=== PATIENT | female | born 1990 | race Caucasian/White ===

== ENCOUNTER 2016-11-01 16:47 | Emergency (ER) | payer MEDICAID ==
[2016-11-01 16:58] VITALS: BP 115/79
[2016-11-01] MEDS ORDERED: IBUPROFEN 800 MG TABLET PO STA (16:59)
[2016-11-01] MEDS ORDERED: IBUPROFEN 800 MG TABLET PO ONE (16:59)
--- NOTE | 2016-11-01 17:00 | ED Physician Documentation ---
PD HPI SKIN - Stated complaint Stated Complaint: CHEST RASH - Chief complaint Chief Complaint: Wound - History obtained from History obtained from: Patient - History of Present Illness Timing - onset: Other (3 days of itchy and painful rash to the left upper breast and axillary area without fevers or chills. 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 : None HEENT: None Psych: None Musculoskeletal: None Derm: None - Past Surgical History Past Surgical History: Yes - Present Medications Home Medications: Ambulatory Orders Medication Instructions Recorded Confirmed Acyclovir 800 mg PO 5XD 10 Days 11/01/16 Gabapentin 300 mg PO TID #30 capsule 11/01/16 HYDROcod/ACETAM 5/325 [[place] 5/325] 1 - 2 ea PO Q6H PRN #15 tablet 11/01/16 predniSONE [Deltasone] 20 mg PO [id number] #21 tab 11/01/16 - Allergies Allergies/Adverse Reactions: Allergies Allergy/AdvReac Type Severity Reaction Status Date / Time No Known Drug Allergies Allergy Verified 07/09/15 21:49 - Social History Does the pt smoke?: Yes Smoking Status: Current some day smoker Does the pt drink ETOH?: No Does the pt have substance abuse?: No - Immunizations Immunizations are current?: Yes - POLST Patient has POLST: No PD ED PE NORMAL - Vitals Vital signs reviewed: Yes - General General: Alert and oriented X 3, No acute distress - Neck Neck: Supple, no meningeal sign, No bony TTP - Derm Derm: Other (Done with Lyric Walters RN, zoster to left upper breast and a little bit to left upper back) - Neuro Neuro: Alert and oriented X 3, Normal speech - Psych Psych: Normal mood, Normal affect Results - Vitals Vitals: Vital Signs - 24 hr 11/01/16 16:51 Temperature 37.0 C Heart Rate 113 H Respiratory 18 Rate Blood Pressure 115/79 O2 Saturation 97 Oxygen O2 Source Room air Departure - Departure Disposition: 01 Home, Self Care Clinical Impression: Herpes zoster Qualifiers: Herpes zoster complications: without complications Qualified Code(s): B02.9 - Zoster without complications Condition: Good Record reviewed to determine appropriate education?: Yes Instructions: ED Shingles Prescriptions: Acyclovir 800 mg PO 5XD 10 Days predniSONE [Deltasone] 20 mg PO [id number] #21 tab Gabapentin 300 mg PO TID #30 capsule HYDROcod/ACETAM 5/325 [[place] 5/325] 1 - 2 ea PO Q6H PRN #15 tablet PRN Reason: Pain Comments: Call your doctor to arrange a follow up appointment. Make the next available appointment. In the interim return anytime if worse or if new symptoms develop. Do not drink or drive while on narcotic pain medicine. Note that many narcotic pain relievers also contain tylenol/acetaminophen. Please ensure that your total dose of acetaminophen from all sources does not exceed 3 grams (3000mg) per day. You may constipated on this medication, take a stool softener such as "Colace" twice a day while you are on it. Also recommend a [id number] laxative such as senna or MiraLAX any day that you do not have a bowel movement. If you received narcotic pain medication in the emergency department, do not drive or operate machinery for the next 24 hours.
== END 2016-11-01 17:15 | disposition home or self-care (01) ==
LOC: ED 16:47
DX: B02.9 Zoster without complications (principal); F17.200 Nicotine dependence, unspecified, uncomplicated
CPT/HCPCS: 99283; A9270

== ENCOUNTER 2017-03-18 14:16 | Emergency (ER) | payer MEDICAID ==
[2017-03-18 14:45] LABS: BILIRUBIN,URINE NEGATIVE (NEGATIVE)
[2017-03-18 14:50] LABS: HCG UR QUAL NEGATIVE; UA CHARGE (STRIP ONLY) YES; UR CULTURE IF IND NOT INDICATED
[2017-03-18] MEDS ORDERED: DICYCLOMINE 10 MG CAPSULE PO STA (14:51)
[2017-03-18] MEDS ORDERED: KETOROLAC 60 MG/2 ML VIAL IVP STA (14:51)
[2017-03-18] MEDS ORDERED: ONDANSETRON 4 MG/2 ML VIAL IVP STA (14:51)
[2017-03-18] MEDS ORDERED: SODIUM CHLORIDE 0.9% 1,000 ML IV ONE (14:51)
[2017-03-18] MEDS ORDERED: KETOROLAC 60 MG/2 ML VIAL ONE (15:02)
[2017-03-18] MEDS ORDERED: ONDANSETRON 4 MG/2 ML VIAL ONE (15:03)
[2017-03-18] MEDS ORDERED: DICYCLOMINE 10 MG CAPSULE PO ONE (15:03)
[2017-03-18 15:40] LABS: BASOPHILS % (AUTO) 0.1 %; EOSINOPHILS % (AUTO) 0.1 %; HCT - HEMATOCRIT 37.3 % (37.0-47.0); HGB - HEMOGLOBIN 12.7 g/dL (12.0-16.0); LYMPHOCYTES # (AUTO) 0.9 10^3/uL (1.5-3.5); LYMPHOCYTES % (AUTO) 7.4 %; MEAN CORPUSCULAR HEMOGLOBIN 31.1 pg (27.0-31.0); MEAN CORPUSCULAR HGB CONC 34.1 g/dL (32.0-36.0); MEAN CORPUSCULAR VOLUME 91.1 fL (81.0-99.0); MONOCYTES # (AUTO) 0.5 10^3/uL (0.0-1.0); MONOCYTES % (AUTO) 4.2 %; NEUTROPHILS # (AUTO) 10.5 10^3/uL (1.5-6.6); NEUTROPHILS % (AUTO) 88.2 %; RED BLOOD COUNT 4.09 10^6/uL (4.20-5.40); RED CELL DISTRIBUTION WIDTH 12.9 % (12.0-15.0); UNCORRECTED WHITE BLOOD COUNT 11.9 x10^3/uL; WHITE BLOOD COUNT 11.9 x10^3/uL (4.8-10.8)
[2017-03-18 15:53] LABS: ALBUMIN/GLOBULIN RATIO 1.5 (1.0-2.2); CALCIUM 8.9 mg/dL (8.5-10.3); CREATININE 0.7 mg/dL (0.4-1.0); POTASSIUM 3.5 mmol/L (3.5-5.0); TOTAL PROTEIN 6.6 g/dL (6.7-8.2)
--- NOTE | 2017-03-18 16:00 | ED Physician Documentation ---
History of Present Illness - Stated complaint Stated Complaint: ABD CRAMPING/NAUSEA - Chief complaint Chief Complaint: Abd Pain - Additonal information Additional information: hx from pt 27 female had a frozen pizza, it thawed for a few days, she put it back in the freezer, then eventually ate it last night within an hr she had severe abd cramps and NV no diarrhea denies preg otherwise healthy no prior surgery Review of Systems Constitutional: denies: Fever, Chills Cardiac: denies: Chest pain / pressure Respiratory: denies: Dyspnea GI: reports: Abdominal Pain, Nausea, Vomiting. 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 : None HEENT: None Psych: None Musculoskeletal: None Derm: Other Other Past Medical History: shingles - Past Surgical History Past Surgical History: Yes - Present Medications Home Medications: Ambulatory Orders Medication Instructions Recorded Confirmed Dicyclomine [Bentyl] 10 mg PO Q8H PRN #20 capsule 03/18/17 Ondansetron HCl [Zofran] 4 mg PO QID PRN 03/18/17 03/18/17 Ondansetron Odt [Zofran] 4 mg TL Q6H PRN #10 tablet 03/18/17 - Allergies Allergies/Adverse Reactions: Allergies Allergy/AdvReac Type Severity Reaction Status Date / Time No Known Drug Allergies Allergy Verified 03/18/17 14:29 - Social History Does the pt smoke?: Yes Smoking Status: Current every day smoker Does the pt drink ETOH?: No Does the pt have substance abuse?: Yes Substance Use and Type: Marijuana - Immunizations Immunizations are current?: Yes - POLST Patient has POLST: No PD ED PE NORMAL - Vitals Vital signs reviewed: Yes - General General: Alert and oriented X 3 - HEENT HEENT: PERRL - Neck Neck: Supple, no meningeal sign - Cardiac Cardiac: RRR - Respiratory Respiratory: No respiratory distress, Clear bilaterally - Abdomen Abdomen: Soft, Other (+ BS diffusely TTP, R > L but no focal, some vol guarding , no rebound) - Derm Derm: Normal color Results - Vitals Vitals: Vital Signs - 24 hr 03/18/17 14:26 Temperature 37.4 C Heart Rate 96 Respiratory 16 Rate Blood Pressure 100/56 L O2 Saturation 96 Oxygen O2 Source Room air - Labs Labs: Laboratory Tests 03/18/17 03/18/17 03/18/17 14:40 15:07 15:07 WBC 11.9 H RBC 4.09 L Hgb 12.7 Hct 37.3 MCV 91.1 MCH 31.1 H MCHC 34.1 RDW 12.9 Plt Count 289 MPV 8.0 Neut # 10.5 H Lymph # 0.9 L [place] # 0.5 Eos # 0.0 Baso # 0.0 Absolute Nucleated RBC 0.01 Nucleated RBC % 0.0 Sodium 138 Potassium 3.5 Chloride 105 Carbon Dioxide 25 Anion Gap 8.0 BUN 15 Creatinine 0.7 Estimated GFR (MDRD) 99 Glucose 98 Calcium 8.9 Total Bilirubin 1.0 AST 18 ALT 20 Alkaline Phosphatase 54 Total Protein 6.6 L Albumin 4.0 Globulin 2.6 Albumin/Globulin Ratio 1.5 Lipase 11 L Serum HCG, Qual Urine Color YELLOW Urine Clarity CLEAR Urine pH 7.0 Ur Specific [place] 1.015 Urine Protein NEGATIVE Urine Glucose (UA) NEGATIVE Urine Ketones NEGATIVE Urine Occult Blood NEGATIVE Urine Nitrite NEGATIVE Urine Bilirubin NEGATIVE Urine Urobilinogen 0.2 (NORMAL) Ur Leukocyte Esterase NEGATIVE Ur Microscopic Review NOT INDICATED Urine Culture Comments NOT INDICATED Urine HCG, Qual NEGATIVE 03/18/17 15:07 WBC RBC Hgb Hct MCV MCH MCHC RDW Plt Count MPV Neut # Lymph # [place] # Eos # Baso # Absolute Nucleated RBC Nucleated RBC % Sodium Potassium Chloride Carbon Dioxide Anion Gap BUN Creatinine Estimated GFR (MDRD) Glucose Calcium Total Bilirubin AST ALT Alkaline Phosphatase Total Protein Albumin Globulin Albumin/Globulin Ratio Lipase Serum HCG, Qual NEGATIVE Urine Color Urine Clarity Urine pH Ur Specific [place] Urine Protein Urine Glucose (UA) Urine Ketones Urine Occult Blood Urine Nitrite Urine Bilirubin Urine Urobilinogen Ur Leukocyte Esterase Ur Microscopic Review Urine Culture Comments Urine HCG, Qual - Rads (name of study) abd sono Radiology: See rad report (nl RUQ sono - no gallstones, appendix not seen, no secondary signs of appendicitis, appendicitis felt to be unlikely) PD MEDICAL DECISION MAKING - ED course ED course: hx most suggestive of food poisoning but pt most TTP on R side so checked labs and sono - no evidence of acute shimon or appy, pt feeling better after IVF bentyl toradol and zofran BP 90s-100 - pt is very thin and fit - not tachy, no change with IVF - suspect this is her baseline Departure - Departure Disposition: 01 Home, Self Care Clinical Impression: Dehydration Food poisoning Qualifiers: Encounter type: initial encounter Injury intent: accidental or unintentional Qualified Code(s): T62.91XA - Toxic effect of unspecified noxious substance eaten as food, accidental (unintentional), initial encounter Condition: Good Instructions: ED Dehydration, ED Gastroenteritis Vs Food Poison Follow-Up: Elver Santos MD [Primary Care Provider] - Prescriptions: Dicyclomine [Bentyl] 10 mg PO Q8H PRN #20 capsule PRN Reason: stomach cramps Ondansetron Odt [Zofran] 4 mg TL Q6H PRN #10 tablet PRN Reason: Nausea / Vomiting Comments: Your labs were fine. The ultrasound did not show any gallstones or signs of appendicitis. So this is likely food poisoning as your suspected. Usually when symptoms start within hours of eating the bad food, it is toxin mediated food poisoning (as opposed to live bacteria like salmonella) and so antibiotics are not needed I did prescribe medication called zofran to ease the vomiting so you can stay hydrated and bentyl to ease the cramps Rest and drink plenty of fluids I wrote a note for work tomorrow Forms: Activity restrictions
--- NOTE | 2017-03-18 17:04 | Ultrasound Preliminary Report ---
Exam: US ABDOMEN LIMITED IMPRESSION: 1. Unremarkable right upper quadrant ultrasound. No cholelithiasis or evidence of acute cholecystitis . 2. The appendix is not visualized. No right lower quadrant secondary signs of inflammation. Therefore , this is considered below low likelihood for acute appendicitis. However, if further evaluation were clinically indicated, CT imaging with contrast would be recommended. [facility] SITE ID: [id number]
--- NOTE | 2017-03-18 17:06 | Ultrasound Report ---
EXAM: ABDOMEN ULTRASOUND LIMITED, RUQ EXAM DATE: 03/18/2017 04:30 PM. CLINICAL HISTORY: Right abd pain, eval appendic and GB. COMPARISON: None. TECHNIQUE: Real-time scanning was performed with static images obtained. FINDINGS: Liver: Normal in size and echotexture. 16.1 cm. Main portal vein flow: Hepatopetal. Gallbladder: Normal. No stones, wall thickening, or sonographic Powell's sign. Biliary System: CBD measures 3.1 mm. No intrahepatic or extrahepatic ductal dilatation. Other: The visualized right kidney, pancreas, abdominal aorta and IVC are unremarkable. Right lower quadrant/appendix: The appendix is not visualized. The patient reportedly tolerated compr ession well. No abnormal lymph nodes, free fluid or abnormal fluid collections demonstrated. Right ov tricia appears grossly normal. IMPRESSION: 1. Unremarkable right upper quadrant ultrasound. No cholelithiasis or evidence of acute cholecystitis . 2. The appendix is not visualized. No right lower quadrant secondary signs of inflammation. Therefore , this is considered below low likelihood for acute appendicitis. However, if further evaluation were clinically indicated, CT imaging with contrast would be recommended. PATR[facility] Referring Provider Line: [phone] SITE ID: [id number]
[2017-03-18 17:15] VITALS: BP 92/42
== END 2017-03-18 17:43 | disposition home or self-care (01) ==
LOC: ED 14:16
DX: E86.0 Dehydration (principal); T62.8X1A Toxic effect of other specified noxious substances eaten as food, accidental (unintentional), initial encounter; Y92.019 Unspecified place in single-family (private) house as the place of occurrence of the external cause; J45.909 Unspecified asthma, uncomplicated; F17.200 Nicotine dependence, unspecified, uncomplicated
CPT/HCPCS: 36415; 76705; 80053; 81003; 81025; 83690; 84703; 85025; 96361; 96374; 96375; 99283; 99284; A9270; 81001; 87086

== ENCOUNTER 2017-06-03 16:45 | Emergency (ER) | payer MEDICAID ==
[2017-06-03 16:53] VITALS: BP 115/46
[2017-06-03] MEDS ORDERED: CLINDAMYCIN 150 MG CAPSULE PO STA (17:15)
[2017-06-03] MEDS ORDERED: NAPROXEN 250 MG TABLET PO STA (17:15)
--- NOTE | 2017-06-03 17:15 | ED Physician Documentation ---
PD HPI HEENT - Stated complaint Stated Complaint: TOOTH PX - Chief complaint Chief Complaint: Heent - History obtained from History obtained from: Patient - History of Present Illness Timing - onset: How many days ago (few) Timing - duration: Days (few) Timing - details: Gradual onset, Still present Location: Tooth (Right lower first molar has a prior On it from years ago. She states it started feeling loose with chewing several days ago and subsequently has gotten more painful with a feeling of pressure in the area and some pain extending into the jaw. There is slight swelling around the base. She states she does have dental coverage but not a regular dentist and so was not able to contact any this weekend. She will try contacting a dentist on Sunday.) Associated symptoms: No: Fever, Swollen nodes, Facial swelling Similar symptoms before: Has not had sx before Recently seen: Not recently seen Review of Systems Constitutional: denies: Fever, Chills, Myalgias Nose: denies: Rhinorrhea / runny nose, Congestion Throat: reports: Dental pain / toothache. 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 : None HEENT: None Psych: None Musculoskeletal: None Derm: Other - Past Surgical History Past Surgical History: Yes - Present Medications Home Medications: Ambulatory Orders Medication Instructions Recorded Confirmed Clindamycin HCl [Cleocin HCl] 300 mg PO TID #20 capsule 06/03/17 HYDROcod/ACETAM 5/325 [[place] 5/325] 1 tab PO Q6H PRN #15 tablet 06/03/17 Naproxen 375 mg PO BID #20 tablet 06/03/17 - Allergies Allergies/Adverse Reactions: Allergies Allergy/AdvReac Type Severity Reaction Status Date / Time No Known Drug Allergies Allergy Verified 06/03/17 16:53 - Social History Does the pt smoke?: Yes Smoking Status: Current every day smoker Does the pt drink ETOH?: No Does the pt have substance abuse?: Yes - Immunizations Immunizations are current?: Yes - POLST Patient has POLST: No PD ED PE NORMAL - Vitals Vital signs reviewed: Yes - General General: Alert and oriented X 3, Well developed/nourished - HEENT HEENT: Ears normal, Pharynx benign. No: Dentition benign (Most of her teeth are pretty good. Old cap on right first lower molar is still in place. There is some mild gum swelling around the base of it. No fluctuance. Tender to percussion though. Presume infection underneath. ) - Neck Neck: Supple, no meningeal sign, No adenopathy - Cardiac Cardiac: RRR, No murmur - Derm Derm: Normal color, Warm and dry - Neuro Neuro: Alert and oriented X 3, Normal speech Results - Vitals Vitals: Vital Signs - 24 hr 06/03/17 16:50 Temperature 36.5 C Heart Rate 77 Respiratory 18 Rate Blood Pressure 115/46 L O2 Saturation 98 Oxygen O2 Source Room air PD MEDICAL DECISION MAKING - ED course Complexity details: considered differential (presume early infection and also inflammation. She will contact dentist this coming week. ), d/w patient Departure - Departure Disposition: 01 Home, Self Care Clinical Impression: Dental infection Condition: Stable Record reviewed to determine appropriate education?: Yes Instructions: ED Tooth Pain Prescriptions: Clindamycin HCl [Cleocin HCl] 300 mg PO TID #20 capsule HYDROcod/ACETAM 5/325 [[place] 5/325] 1 tab PO Q6H PRN #15 tablet PRN Reason: Pain Naproxen 375 mg PO BID #20 tablet Comments: Presume there is inflammation and probably early infection underneath the On that tooth. Use naproxen twice daily for inflammation and clindamycin antibiotic as directed for infection. Add Tylenol or hydrocodone if needed for pain. The definitive care of this will be from a dentist so call Sunday to try to get an appointment as soon as they are able to get you. Discharge Date/Time: 06/03/17 17:26
[2017-06-03] MEDS ORDERED: HYDROcod/ACET 5/325 Prepack 6 PO STA (17:16)
== END 2017-06-03 17:26 | disposition home or self-care (01) ==
LOC: ED 16:45
DX: K04.7 Periapical abscess without sinus (principal); F17.200 Nicotine dependence, unspecified, uncomplicated
CPT/HCPCS: 99283; A9270

== ENCOUNTER 2018-03-13 16:58 | Emergency (ER) | payer MEDICAID ==
[2018-03-13 17:13] VITALS: BP 123/72
--- NOTE | 2018-03-13 19:41 | ED Physician Documentation ---
PD HPI FEMALE - Stated complaint Stated Complaint: FEMALE - Chief complaint Chief Complaint: Abd Pain - History obtained from History obtained from: Patient - History of Present Illness Timing - onset: Yesterday (2-3 days ago perhaps, but more yesterday) Timing - duration: Days Timing - details: Gradual onset, Still present Associated symptoms: Vaginal pain (feeling burning and some itching; tried OTC yeast cream the past couple days, but pain worse since yesterday.), Vaginal bleeding (spoitty), Vaginal discharge, Genital sore/lesion (noted a small bump on inner labia area and periurethral.), Dysuria (today). No: Fever, Urinary frequency Contributing factors: IUD (she says has had spotty bleeding with the IUD and would like to have it out (has had it 3 years). Asks if we can do removal while doing pelvic for checking symptoms.), Sexually active. No: Exposed to STD Similar symptoms before: Has not had sx before Review of Systems Constitutional: denies: Fever, Chills, Myalgias Nose: denies: Rhinorrhea / runny nose Throat: denies: Sore throat Respiratory: denies: Cough GI: denies: Nausea, Vomiting, Diarrhea : reports: Dysuria, Discharge, Irregular menses (light spotting intermittently since IUD 3 years ago). denies: Frequency, Hematuria Skin: reports: Lesions (noted inner labia redness and has a small bump). 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 HEENT: None Psych: None Musculoskeletal: None Derm: Other - Past Surgical History Past Surgical History: Yes - Present Medications Home Medications: Ambulatory Orders Medication Instructions Recorded Confirmed Fluconazole [Diflucan] 150 mg PO ONCE #1 tablet 03/13/18 Metronidazole [Flagyl] 500 mg PO BID #14 tablet 03/13/18 Tramadol HCl 50 mg PO Q6H PRN #15 tablet 03/13/18 - Allergies Allergies/Adverse Reactions: Allergies Allergy/AdvReac Type Severity Reaction Status Date / Time No Known Drug Allergies Allergy Verified 03/13/18 17:08 - Social History Does the pt smoke?: Yes Smoking Status: Current every day smoker Does the pt drink ETOH?: No Does the pt have substance abuse?: Yes Substance Use and Type: Marijuana - Immunizations Immunizations are current?: No Immunizations: TDAP >10years/unknown - POLST Patient has POLST: No PD ED PE NORMAL - Vitals Vital signs reviewed: Yes - General General: Alert and oriented X 3, No acute distress, Well developed/nourished - Abdomen Abdomen: Soft, Non tender - Female Female : Rails 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 Inner labia with some small inflammatory bumps but do not feel like abscesses. No erosions. Viral culture obtained from that area. Redness of the tissue generally c/w possible yeast. The vaginal vault has milky white dicharge with some mild malodor. Mild redness of cervical os. IUD strings visible and I removed the IUD verify again the patient desire for that.) - Rectal Rectal: Deferred - Back Back: No CVA TTP - Derm Derm: Normal color, Warm and dry - Extremities Extremities: No calf tenderness / cord Results - Vitals Vitals: Vital Signs - 24 hr 03/13/18 03/13/18 17:07 21:06 Temperature 37.2 C Heart Rate 89 95 Respiratory 20 19 Rate Blood Pressure 123/72 O2 Saturation 100 100 Oxygen O2 Source Room air - Labs Labs: Microbiology 03/13/18 20:30 Wet Prep - Final Cervix Laboratory Tests 03/13/18 20:02 Urine Color YELLOW Urine Clarity CLEAR Urine pH 6.5 Ur Specific [place] 1.015 Urine Protein NEGATIVE Urine Glucose (UA) NEGATIVE Urine Ketones NEGATIVE Urine Occult Blood SMALL H Urine Nitrite NEGATIVE Urine Bilirubin NEGATIVE Urine Urobilinogen 0.2 (NORMAL) Ur Leukocyte Esterase NEGATIVE Urine RBC 6-10 H Urine WBC 0-3 Ur Squamous Epith Cells FEW Squamous Urine Bacteria None Seen Ur Microscopic Review INDICATED Urine Culture Comments NOT INDICATED PD MEDICAL DECISION MAKING - ED course Complexity details: reviewed results (clue cells seen. ), considered differential (likely BV and will test for STDs and herpes as well. ), d/w michael leavitt Departure - Departure Disposition: 01 Home, Self Care Clinical Impression: Bacterial vaginitis, Remove/insert IUD Condition: Stable Record reviewed to determine appropriate education?: Yes Instructions: ED Vaginosis Bacterial Follow-Up: Elver Santos MD [Primary Care Provider] - Prescriptions: Fluconazole [Diflucan] 150 mg PO ONCE #1 tablet Metronidazole [Flagyl] 500 mg PO BID #14 tablet Tramadol HCl 50 mg PO Q6H PRN #15 tablet PRN Reason: Pain Comments: Your exam looks like a bacterial vaginitis. There may be some vaginal yeast infection as well. We will treated with Flagyl antibiotic twice daily for a week. Avoid alcohol with it as it can cause a side effect of nausea. We gave you an antifungal tablet here and you can repeat that in about 3 or 4 days. That should treat any yeast component. The initial lab microscope view did show a bacterial presence that is a normal alissa in the vaginal vault that can get out of balance. We did do cultures to look for STDs as well as herpetic and those will result in 2-3 days and will call you if they are positive. It does not have that appearance right now but were double checking Tylenol or ibuprofen if needed for pain. Use lidocaine jelly if needed. Add tramadol if needed for worse pain. It should improve over the next few days. Discharge Date/Time: 03/13/18 21:06
[2018-03-13 20:09] LABS: BILIRUBIN,URINE NEGATIVE (NEGATIVE); GLUCOSE, URINE (UA) NEGATIVE (NEGATIVE); KETONES,URINE (UA) NEGATIVE (NEGATIVE); LEUKOCYTE ESTERASE, URINE NEGATIVE (NEGATIVE); NITRITE,URINE NEGATIVE (NEGATIVE); OCCULT BLOOD,URINE SMALL (NEGATIVE); PH,URINE 6.5 PH (5.0-7.5); PROTEIN,URINE NEGATIVE (NEGATIVE); UROBILINOGEN,URINE 0.2 (NORMAL) E.U./dL (NORMAL)
[2018-03-13 20:22] LABS: BACTERIA,URINE None Seen /HPF (None Seen); CLARITY,URINE CLEAR (CLEAR); SQUAMOUS EPITHELIAL CELL,UR FEW Squamous (<= Few)
[2018-03-13] MEDS ORDERED: IBUPROFEN 600 MG TABLET PO STA (20:28)
[2018-03-13] MEDS ORDERED: FLUCONAZOLE 100 MG TABLET PO STA (20:28)
[2018-03-13] MEDS ORDERED: metroNIDAZOLE 250 MG TABLET PO STA (20:28)
[2018-03-13] MEDS ORDERED: LIDOCAINE JELLY 2% 5 ML TUBE TOP STA (20:28)
[2018-03-16 10:21] LABS: HSV 2 DNA NOT DETECTED; SOURCE VAGINAL
== END 2018-03-13 21:06 | disposition home or self-care (01) ==
LOC: ED 16:58
DX: N76.0 Acute vaginitis (principal); F17.200 Nicotine dependence, unspecified, uncomplicated; Z30.432 Encounter for removal of intrauterine contraceptive device
CPT/HCPCS: 81001; 87210; 87491; 87529; 87591; 99283; A9270; J3490; 81003; 87086

== ENCOUNTER 2018-03-18 14:11 | Emergency (ER) | payer MEDICAID ==
[2018-03-18 14:38] VITALS: BP 104/57
--- NOTE | 2018-03-18 15:44 | ED Physician Documentation ---
PD HPI FEMALE - Stated complaint Stated Complaint: ABN LAB RESULT - Chief complaint Chief Complaint: General - History obtained from History obtained from: Patient - History of Present Illness Timing - onset: How many days ago (days ago of vaginal burning and dysuria, and was treated for BV with Flagyl. Howveer still small blistes on inside left labia, worsening numbr of these) Timing - duration: Days Timing - details: Gradual onset, Waxing and waning Associated symptoms: Fever, Chest/shoulder pain, Abdominal pain, Urinary frequency Review of Systems Constitutional: denies: Fever, Chills : reports: Frequency. 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 : None HEENT: None Psych: None Musculoskeletal: None Derm: Other - Past Surgical History Past Surgical History: Yes - Present Medications Home Medications: Ambulatory Orders Medication Instructions Recorded Confirmed Fluconazole [Diflucan] 150 mg PO ONCE #1 tablet 03/13/18 Metronidazole [Flagyl] 500 mg PO BID #14 tablet 03/13/18 Tramadol HCl 50 mg PO Q6H PRN #15 tablet 03/13/18 Acyclovir 400 mg PO TID #15 tablet 03/18/18 - Allergies Allergies/Adverse Reactions: Allergies Allergy/AdvReac Type Severity Reaction Status Date / Time No Known Drug Allergies Allergy Verified 03/13/18 17:08 - Social History Does the pt smoke?: Yes Smoking Status: Current every day smoker Does the pt drink ETOH?: No Does the pt have substance abuse?: Yes - Immunizations Immunizations are current?: No Immunizations: TDAP >10years/unknown - POLST Patient has POLST: No PD ED PE NORMAL - Vitals Vital signs reviewed: Yes - General General: Alert and oriented X 3, No acute distress (is tearful about the results), Well developed/nourished - HEENT HEENT: Pharynx benign - Neck Neck: Supple, no meningeal sign, No adenopathy - Cardiac Cardiac: RRR, No murmur - Respiratory Respiratory: Clear bilaterally - Back Back: No CVA TTP - Derm Derm: Normal color, Warm and dry, No rash Results - Vitals Vitals: Oxygen O2 Source Room air PD MEDICAL DECISION MAKING - ED course Complexity details: reviewed old records, reviewed results (had the BV from the wet mount on first bisit, and was treated. Had blisters worrisome for herpetic and was cultures, the results of which are out today with positive HSV !), considered differential, d/w patient (had covered BV germs with Flagyl and she says the discharge is lessening. She is getting more of the little blister and labial pain though. 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 Presumably the bacterial vaginosis has been treated (that is the trichomonas and clue cells on the lab results) with the metronidazole that was prescribed on your first visit. 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 You typically will not get rid of the herpes presence in the nerve endings but it is quite variable if you get recurrent outbreaks and it can be quite a long time in between them. Use acyclovir dosing for 5 days for recurrent outbreaks. Discharge Date/Time: 03/18/18 16:08
== END 2018-03-18 16:08 | disposition home or self-care (01) ==
LOC: ED 14:11
DX: A60.09 Herpesviral infection of other urogenital tract (principal); F17.200 Nicotine dependence, unspecified, uncomplicated
CPT/HCPCS: 99283

== ENCOUNTER 2018-05-12 05:45 | Emergency (ER) | payer MEDICAID ==
[2018-05-12 06:07] LABS: BILIRUBIN,URINE NEGATIVE (NEGATIVE); GLUCOSE, URINE (UA) NEGATIVE (NEGATIVE); KETONES,URINE (UA) NEGATIVE (NEGATIVE); LEUKOCYTE ESTERASE, URINE NEGATIVE (NEGATIVE); NITRITE,URINE NEGATIVE (NEGATIVE); OCCULT BLOOD,URINE TRACE-INTA (NEGATIVE); PROTEIN,URINE NEGATIVE (NEGATIVE); UROBILINOGEN,URINE 0.2 (NORMAL) E.U./dL (NORMAL)
[2018-05-12 06:08] LABS: CLARITY,URINE CLEAR (CLEAR); HCG UR QUAL POSITIVE
[2018-05-12] MEDS ORDERED: ONDANSETRON ODT 4 MG TABLET TL STA (06:25)
--- NOTE | 2018-05-12 06:25 | ED Physician Documentation ---
PD HPI NVD - Stated complaint Stated Complaint: NAUSEA,VOMITING - Chief complaint Chief Complaint: Abd Pain - History obtained from History obtained from: Patient - History of Present Illness Timing - onset: How many days ago (4) Timing - duration: Days Timing - details: Gradual onset, Intermittant, Waxing and waning Pain level now: 0 Associated symptoms: No: Fever, Abdominal pain Improved by: Other (nothing) Worsened by: Other (no exacerbating factors) Recently seen: Emergency Dept (T+R 2 months ago from this ED, subsequently had IUD removed) - Additonal information Additional information: c/o 4 days N/V. had (+) home test yesterday. Review of Systems Constitutional: denies: Fever GI: reports: Nausea, Vomiting. denies: Abdominal Pain : reports: Now EGA. 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 : None HEENT: None Psych: None Musculoskeletal: None Derm: Other - Past Surgical History Past Surgical History: Yes - Present Medications Home Medications: Ambulatory Orders Medication Instructions Recorded Confirmed Fluconazole [Diflucan] 150 mg PO ONCE #1 tablet 03/13/18 Metronidazole [Flagyl] 500 mg PO BID #14 tablet 03/13/18 Tramadol HCl 50 mg PO Q6H PRN #15 tablet 03/13/18 Acyclovir 400 mg PO TID #15 tablet 03/18/18 Ondansetron [Ondansetron Odt] 4 mg PO Q6HR PRN #14 tab.rapdis 05/12/18 - Allergies Allergies/Adverse Reactions: Allergies Allergy/AdvReac Type Severity Reaction Status Date / Time No Known Drug Allergies Allergy Verified 05/12/18 05:55 - Social History Does the pt smoke?: Yes Smoking Status: Current every day smoker Does the pt drink ETOH?: No Does the pt have substance abuse?: Yes - Immunizations Immunizations are current?: No Immunizations: TDAP >10years/unknown - POLST Patient has POLST: No PD ED PE NORMAL - Vitals Vital signs reviewed: Yes - General General: Alert and oriented X 3, No acute distress, Well developed/nourished - Abdomen Abdomen: Soft, Non tender - Back Back: No CVA TTP Results - Vitals Vitals: Vital Signs - 24 hr 05/12/18 05/12/18 05:48 06:35 Temperature 36.3 C L Heart Rate 116 H 85 Respiratory 16 16 Rate Blood Pressure 124/73 126/72 O2 Saturation 99 100 Oxygen O2 Source Room air - Labs Labs: Laboratory Tests 05/12/18 06:00 Urine Color YELLOW Urine Clarity CLEAR Urine pH 6.0 Ur Specific [place] 1.025 Urine Protein NEGATIVE Urine Glucose (UA) NEGATIVE Urine Ketones NEGATIVE Urine Occult Blood TRACE-INTA Urine Nitrite NEGATIVE Urine Bilirubin NEGATIVE Urine Urobilinogen 0.2 (NORMAL) Ur Leukocyte Esterase NEGATIVE Ur Microscopic Review NOT INDICATED Urine Culture Comments NOT INDICATED Urine HCG, Qual POSITIVE PD MEDICAL DECISION MAKING - ED course Complexity details: considered differential, d/w patient Departure - Departure Disposition: 01 Home, Self Care Clinical Impression: Vomiting during Condition: Good Instructions: ED Nausea Vomiting Follow-Up: Elver Santos MD [Primary Care Provider] - Prescriptions: Ondansetron [Ondansetron Odt] 4 mg PO Q6HR PRN #14 tab.rapdis PRN Reason: Nausea / Vomiting Comments: Your test is positive: this means that you are . As we discussed, you will need further testing including blood tests and an ultrasound, but if your symptoms are limited to mild nausea and vomiting that are controlled with the antinausea medication, you can follow up with your trapper bird to discuss the timing of these tests. Please return to the emergency department if you are worse in any way; particularly concerning would be pain (vaginal, pelvic, abdominal, back), vaginal bleeding, fever, or worsening nausea/vomiting. Discharge Date/Time: 05/12/18 06:45
[2018-05-12 06:53] VITALS: BP 126/72
== END 2018-05-12 06:45 | disposition home or self-care (01) ==
LOC: ED 05:45
DX: O99.89 Other specified diseases and conditions complicating pregnancy, childbirth and the puerperium (principal); R11.2 Nausea with vomiting, unspecified; F17.200 Nicotine dependence, unspecified, uncomplicated
CPT/HCPCS: 81003; 81025; 99283; Q0162; 81001; 87086

== ENCOUNTER 2018-05-26 10:09 | Emergency (ER) | payer MEDICAID ==
[2018-05-26 10:28] LABS: BILIRUBIN,URINE NEGATIVE (NEGATIVE); GLUCOSE, URINE (UA) NEGATIVE (NEGATIVE); KETONES,URINE (UA) NEGATIVE (NEGATIVE); LEUKOCYTE ESTERASE, URINE NEGATIVE (NEGATIVE); NITRITE,URINE NEGATIVE (NEGATIVE); OCCULT BLOOD,URINE TRACE-INTA (NEGATIVE); PH,URINE 6.5 PH (5.0-7.5); PROTEIN,URINE NEGATIVE (NEGATIVE); UROBILINOGEN,URINE 0.2 (NORMAL) E.U./dL (NORMAL)
[2018-05-26] MEDS ORDERED: ONDANSETRON ODT 4 MG TABLET TL STA (10:29)
--- NOTE | 2018-05-26 10:31 | ED Physician Documentation ---
PD HPI NVD - Stated complaint Stated Complaint: NAUSEA - Chief complaint Chief Complaint: Abd Pain - History obtained from History obtained from: Patient - History of Present Illness Timing - onset: Today Timing - details: Still present Contributing factors: Other () Similar symptoms before: Diagnosis (Similar symptoms with previous pregnancies.) - Additonal information Additional information: The patient is a 28-year-old female who is at 9 weeks gestation, and presents with nausea and vomiting. She denies abdominal pain, fever, dysuria, or vaginal bleeding. She reports history of similar symptoms with her previous pregnancies. She does not currently have any medication for nausea. She recently had an ultrasound revealing intrauterine . Review of Systems Constitutional: denies: Fever Ears: denies: Tinnitus/ringing Nose: denies: Congestion Throat: denies: Sore throat Cardiac: denies: Chest pain / pressure Respiratory: denies: Dyspnea, Cough GI: reports: Nausea, Vomiting, Constipation. denies: Abdominal Pain : reports: Now EGA (9 weeks gestation.). 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 HEENT: None Psych: None Musculoskeletal: None Derm: Other - Past Surgical History Past Surgical History: Yes - Present Medications Home Medications: Ambulatory Orders Medication Instructions Recorded Confirmed Fluconazole [Diflucan] 150 mg PO ONCE #1 tablet 03/13/18 Metronidazole [Flagyl] 500 mg PO BID #14 tablet 03/13/18 Tramadol HCl 50 mg PO Q6H PRN #15 tablet 03/13/18 Acyclovir 400 mg PO TID #15 tablet 03/18/18 Ondansetron [Ondansetron Odt] 4 mg PO Q6HR PRN #14 tab.rapdis 05/12/18 Ondansetron Odt [Zofran] 4 mg TL Q6H PRN #10 tablet 05/26/18 - Allergies Allergies/Adverse Reactions: Allergies Allergy/AdvReac Type Severity Reaction Status Date / Time No Known Drug Allergies Allergy Verified 05/12/18 05:55 - Social History Does the pt smoke?: Yes Smoking Status: Current every day smoker Does the pt drink ETOH?: No Does the pt have substance abuse?: Yes - Immunizations Immunizations are current?: No Immunizations: TDAP >10years/unknown - POLST Patient has POLST: No PD ED PE NORMAL - Vitals Vital signs reviewed: Yes (Normal) - General General: Alert and oriented X 3, Well developed/nourished - HEENT HEENT: Atraumatic, Pharynx benign - Neck Neck: No adenopathy - Cardiac Cardiac: RRR, No murmur - Respiratory Respiratory: No respiratory distress, Clear bilaterally - Abdomen Abdomen: Normal bowel sounds, Soft, Non tender - Back Back: No CVA TTP - Derm Derm: No rash - Extremities Extremities: No edema, No calf tenderness / cord - Neuro Neuro: Alert and oriented X 3, No motor deficit, Normal speech Results - Vitals Vitals: Vital Signs - 24 hr 05/26/18 10:15 Temperature 36.6 C Heart Rate 89 Respiratory 18 Rate Blood Pressure 109/69 O2 Saturation 100 Oxygen O2 Source Room air - Labs Labs: Laboratory Tests 05/26/18 10:25 Urine Color YELLOW Urine Clarity HAZY Urine pH 6.5 Ur Specific [place] 1.025 Urine Protein NEGATIVE Urine Glucose (UA) NEGATIVE Urine Ketones NEGATIVE Urine Occult Blood TRACE-INTA Urine Nitrite NEGATIVE Urine Bilirubin NEGATIVE Urine Urobilinogen 0.2 (NORMAL) Ur Leukocyte Esterase NEGATIVE Urine RBC 0-5 Urine WBC 0-3 Ur Squamous Epith Cells MANY Squamous H Urine Bacteria Many H Urine Mucus Marked Strands Ur Microscopic Review INDICATED Urine Culture Comments NOT INDICATED PD MEDICAL DECISION MAKING - ED course Complexity details: reviewed old records, re-evaluated patient, considered differential, d/w patient ED course: Patient's presentation is most consistent with related nausea and vomiting. Her presentation does not suggest an acute abdomen, urinary tract infection or pyelonephritis, and she does not appear dehydrated. Treatment in the emergency department included administration of Zofran ODT, which improved her symptoms. She subsequently demonstrated ability to drink fluids without recurrent vomiting. She is being discharged with prescription for Zofran. I discussed with her outpatient follow-up, as well as potentially worrisome signs or symptoms that should prompt reevaluation in the emergency department. Departure - Departure Disposition: 01 Home, Self Care Clinical Impression: Vomiting Qualifiers: Vomiting type: unspecified Vomiting Intractability: non-intractable Nausea pres ence: with nausea Qualified Code(s): R11.2 - Nausea with vomiting, unspecified Qualifiers: Weeks of gestation: 9 weeks Qualified Code(s): Z3A.09 - 9 weeks gestation of Condition: Stable Instructions: ED Nausea Vomiting Follow-Up: Elver Santos MD [Primary Care Provider] - Prescriptions: Ondansetron Odt [Zofran] 4 mg TL Q6H PRN #10 tablet PRN Reason: Nausea / Vomiting Comments: You can use Zofran as prescribed if needed for nausea. Drink plenty of fluids. Follow-up with your primary physician as scheduled. Return to the emergency department if you develop persistent vomiting, abdominal pain, dehydration, or otherwise worsening.
[2018-05-26 10:35] LABS: BACTERIA,URINE Many /HPF (None Seen); CLARITY,URINE HAZY (CLEAR); MUCUS,URINE Marked Strands; RBC,URINE 0-5 /HPF (0-5); SQUAMOUS EPITHELIAL CELL,UR MANY Squamous (<= Few)
[2018-05-26 11:21] VITALS: BP 105/58
== END 2018-05-26 11:23 | disposition home or self-care (01) ==
LOC: ED 10:09
DX: O99.89 Other specified diseases and conditions complicating pregnancy, childbirth and the puerperium (principal); R11.2 Nausea with vomiting, unspecified; F17.200 Nicotine dependence, unspecified, uncomplicated; Z3A.09 9 weeks gestation of pregnancy
CPT/HCPCS: 81001; 99283; Q0162; 81003; 87086

== ENCOUNTER 2018-07-31 17:12 | Emergency (ER) | payer MEDICAID ==
--- NOTE | 2018-07-31 19:24 | ED Physician Documentation ---
History of Present Illness - Stated complaint Stated Complaint: REQUESTS BLOOD DRAW - Chief complaint Chief Complaint: General - History obtained from History obtained from: Patient - History of Present Illness Timing: Other (She found out today that an ex-boyfriend had an ex-girlfriend who had HIV. 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 : None HEENT: None Psych: None Musculoskeletal: None Derm: Other - Past Surgical History Past Surgical History: Yes - Allergies Allergies/Adverse Reactions: Allergies Allergy/AdvReac Type Severity Reaction Status Date / Time No Known Drug Allergies Allergy Verified 07/31/18 17:38 - Social History Does the pt smoke?: Yes Smoking Status: Current every day smoker Does the pt drink ETOH?: No Does the pt have substance abuse?: Yes - Immunizations Immunizations are current?: No Immunizations: TDAP >10years/unknown - POLST Patient has POLST: No PD ED PE NORMAL - Vitals Vital signs reviewed: Yes - General General: Alert and oriented X 3, No acute distress - Neuro Neuro: Alert and oriented X 3, Normal speech - Psych Psych: Normal mood, Normal affect Results - Vitals Vitals: Vital Signs - 24 hr 07/31/18 17:31 Temperature 36.6 C Heart Rate 87 Respiratory 16 Rate Blood Pressure 118/72 O2 Saturation 99 Oxygen O2 Source Room air PD MEDICAL DECISION MAKING - ED course ED course: I discussed with her that we do not have a system in place to follow-up on HIV results which are send out labs and encourage PCP follow-up for this nonemergent complaint. She was understandably upset which I apologized for. Departure - Departure Disposition: 01 Home, Self Care Clinical Impression: Normal exam, Concern about STD in female without diagnosis Condition: Stable Record reviewed to determine appropriate education?: Yes Instructions: STDs Reduce Risk Teen Follow-Up: [facility] [Provider Group] [facility] [Provider Group] Comments: As discussed we cannot offer HIV testing in the emergency department for the reasons we discussed here. It is important to follow-up with your primary care physician for further evaluation.
[2018-07-31 19:40] VITALS: BP 124/75
== END 2018-07-31 19:40 | disposition home or self-care (01) ==
LOC: ED 17:12
DX: Z00.8 Encounter for other general examination (principal); Z20.6 Contact with and (suspected) exposure to human immunodeficiency virus [HIV]
CPT/HCPCS: 99281; 99283

== ENCOUNTER 2019-05-06 15:42 | Emergency (ER) | payer MEDICAID ==
--- NOTE | 2019-05-06 15:59 | ED Physician Documentation ---
PD HPI URI - Stated complaint Stated Complaint: WORK NOTE - Chief complaint Chief Complaint: General - History obtained from History obtained from: Patient - History of Present Illness Timing - onset: How many weeks ago Timing duration: Weeks (symptoms for about a week and improving. No current fevers and is feeling generally better. 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 Her kids were recently sick as well.). No: Immunocompromised, COPD / asthma Worsened by: Activity Similar symptoms before: Diagnosis (she says she felt like a flu illness.) Review of Systems Constitutional: reports: Fever, Chills, Myalgias Nose: reports: Congestion Throat: denies: Sore throat Respiratory: reports: Dyspnea, Cough. denies: Wheezing GI: denies: Vomiting, Diarrhea Neurologic: reports: Generalized weakness. 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 : None HEENT: None Psych: None Musculoskeletal: None Derm: Other - Past Surgical History Past Surgical History: Yes - Present Medications Home Medications: Ambulatory Orders Medication Instructions Recorded Confirmed Benzonatate [Tessalon Perle] 100 mg PO TID PRN #25 capsule 05/06/19 dexAMETHasone [Decadron] 4 mg PO DAILY #5 tablet 05/06/19 - Allergies Allergies/Adverse Reactions: Allergies Allergy/AdvReac Type Severity Reaction Status Date / Time No Known Drug Allergies Allergy Verified 05/06/19 15:47 - Social History Does the pt smoke?: Yes Smoking Status: Current every day smoker Does the pt drink ETOH?: No Does the pt have substance abuse?: Yes - Immunizations Immunizations are current?: No Immunizations: TDAP >10years/unknown - POLST Patient has POLST: No PD ED PE NORMAL - Vitals Vital signs reviewed: Yes - General General: Alert and oriented X 3, No acute distress, Well developed/nourished - HEENT HEENT: Pharynx benign - Neck Neck: Supple, no meningeal sign, No adenopathy - Cardiac Cardiac: RRR, No murmur - Respiratory Respiratory: No respiratory distress, Clear bilaterally - Derm Derm: Normal color, Warm and dry - Neuro Neuro: Alert and oriented X 3, No motor deficit, Normal speech Results - Vitals Vitals: Vital Signs - 24 hr 05/06/19 05/06/19 15:47 16:15 Temperature 36.6 C 36.2 C L Heart Rate 79 78 Respiratory 15 16 Rate Blood Pressure 105/62 101/67 O2 Saturation 98 96 Oxygen O2 Source Room air PD MEDICAL DECISION MAKING - ED course Complexity details: considered differential (she sounds improved enough to be able to return to work. No current fevers, improved symptoms. Still with cough and can Rx meds to improve on that. ), d/w patient Departure - Departure Disposition: 01 Home, Self Care Clinical Impression: Flu-like symptoms Condition: Stable Record reviewed to determine appropriate education?: Yes Instructions: ED Upper Resp Infec No Abx Tx Prescriptions: Benzonatate [Tessalon Perle] 100 mg PO TID PRN #25 capsule PRN Reason: Cough dexAMETHasone [Decadron] 4 mg PO DAILY #5 tablet Comments: You do sound well enough to resume work. There may be still some persistent cough the last for a week or 2. For that you could use Decadron steroid for inflammation of the bronchials and Tessalon for cough suppression. Stay well- hydrated. Cough syrups or honey are good as well. Forms: Activity restrictions Discharge Date/Time: 05/06/19 16:42
[2019-05-06 16:17] VITALS: BP 101/67
[2019-05-06] MEDS ORDERED: DEXAMETHASONE 10 MG/ML VIAL PO STA (16:19)
[2019-05-06] MEDS ORDERED: BENZONATATE 100 MG CAPSULE PO STA (16:19)
[2019-05-06] MEDS ORDERED: CHERRY SYRUP 10 ML UDC PO ONE (16:19)
== END 2019-05-06 16:42 | disposition home or self-care (01) ==
LOC: ED 15:42
DX: Z02.89 Encounter for other administrative examinations (principal); R05 Cough; F17.200 Nicotine dependence, unspecified, uncomplicated
CPT/HCPCS: 99282; 99283; A9270

== ENCOUNTER 2019-05-10 11:34 | Emergency (ER) | payer MEDICAID ==
[2019-05-10 11:48] VITALS: BP 104/48
[2019-05-10] MEDS ORDERED: MELOXICAM 7.5 MG TABLET PO STA (12:55)
--- NOTE | 2019-05-10 12:57 | ED Physician Documentation ---
History of Present Illness - Stated complaint Stated Complaint: DENTAL PX - Chief complaint Chief Complaint: Heent - History obtained from History obtained from: Patient - History of Present Illness Timing: How many weeks ago (2-3) Pain level max: 8 Pain level now: 8 Improved by: nothing Worsened by: eating - Additonal information Additional information: R upper dental pain. no fevers. no vomiting. no swelling. 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 : None HEENT: None Psych: None Musculoskeletal: None Derm: Other - Past Surgical History Past Surgical History: Yes - Present Medications Home Medications: Ambulatory Orders Medication Instructions Recorded Confirmed Benzonatate [Tessalon Perle] 100 mg PO TID PRN #25 capsule 05/06/19 dexAMETHasone [Decadron] 4 mg PO DAILY #5 tablet 05/06/19 Hydrocodone/Acetaminophen 1 - 2 each PO Q6H PRN #14 tablet 05/10/19 [Hydrocodon-Acetaminophen 5-325] Meloxicam [Mobic] 15 mg PO DAILY PRN #20 tablet 05/10/19 - Allergies Allergies/Adverse Reactions: Allergies Allergy/AdvReac Type Severity Reaction Status Date / Time No Known Drug Allergies Allergy Verified 05/10/19 11:48 - Social History Does the pt smoke?: Yes Smoking Status: Current every day smoker Does the pt drink ETOH?: No Does the pt have substance abuse?: Yes - Immunizations Immunizations are current?: No Immunizations: TDAP >10years/unknown - POLST Patient has POLST: No PD ED PE NORMAL - Vitals Vital signs reviewed: Yes - General General: Alert and oriented X 3, No acute distress, Well developed/nourished - HEENT HEENT: PERRL, Ears normal, Moist mucous membranes, Pharynx benign, Other (R upper wisdom tooth is erupting, crooked. no signs of infection or abscess.) - Neck Neck: Supple, no meningeal sign, No adenopathy - Cardiac Cardiac: RRR - Respiratory Respiratory: No respiratory distress, Clear bilaterally - Abdomen Abdomen: Soft, Non tender, Non distended - Derm Derm: Warm and dry - Neuro Neuro: Alert and oriented X 3 - Psych Psych: Normal mood, Normal affect Results - Vitals Vitals: Vital Signs - 24 hr 05/10/19 11:47 Temperature 36.6 C Heart Rate 91 Respiratory 16 Rate Blood Pressure 104/48 L O2 Saturation 100 Oxygen O2 Source Room air PD MEDICAL DECISION MAKING - ED course Complexity details: considered differential, d/w patient ED course: 29-year-old female with what appears to be a wisdom tooth eruption. This does not appear to be straight. Recommend that she follow-up with an oral surgeon for further care. No signs of infection or abscess. Patient counseled regarding signs and symptoms for which I believe and urgent re-evaluation would be necessary. Patient with good understanding of and agreement to plan and is comfortable going home at this time This document was made in part using voice recognition software. While efforts are made to proofread this document, sound alike and grammatical errors may occur. Departure - Departure Disposition: 01 Home, Self Care Clinical Impression: Tooth eruption Condition: Good Instructions: ED Tooth Pain Follow-Up: your,doctor in 1 week [Other] Adalberto Padron DDS [Provider Admit Priv/Credential] - Prescriptions: Hydrocodone/Acetaminophen [Hydrocodon-Acetaminophen 5-325] 1 - 2 each PO Q6H PRN #14 tablet PRN Reason: pain Meloxicam [Mobic] 15 mg PO DAILY PRN #20 tablet PRN Reason: pain Comments: Contact Dr. Padron or another oral surgeon of your choosing about having your wisdom teeth removed. Return if you worsen Discharge Date/Time: 05/10/19 13:09
== END 2019-05-10 13:09 | disposition home or self-care (01) ==
LOC: ED 11:34
DX: K00.6 Disturbances in tooth eruption (principal); F17.200 Nicotine dependence, unspecified, uncomplicated
CPT/HCPCS: 99282; 99284; A9270

== ENCOUNTER 2019-10-06 10:08 | Emergency (ER) | payer MEDICAID ==
--- NOTE | 2019-10-06 11:04 | XRAY Report ---
Reason: dyspnea Procedure Date: 10/06/2019 Accession Number: [id number] / [id number] Procedure: XR - Chest 1 View X-Ray CPT Code: 64767 Final Report FULL RESULT: EXAM: CHEST RADIOGRAPHY EXAM DATE: 10/06/2019 10:47 AM. CLINICAL HISTORY: Dyspnea. COMPARISON: None. TECHNIQUE: 1 view. FINDINGS: Lungs/Pleura: No focal opacities evident. No pleural effusion. No pneumothorax. Mediastinum: Within exam limitations, the cardiomediastinal contour is normal. Other: None. IMPRESSION: Normal single view chest. RADIA
--- NOTE | 2019-10-06 11:36 | ED Physician Documentation ---
PD HPI DYSPNEA - Stated complaint Stated Complaint: SOA - Chief complaint Chief Complaint: Resp - History obtained from History obtained from: Patient - History of Present Illness Timing - onset: How many weeks ago (1-2) Timing - onset during: Light activity Timing - duration: Weeks (1-2) Timing - details: Gradual onset, Still present Inciting event(s): No: Out of meds, URI (she had mild cough and dyspnea in mid July and works at [employer]. Tested positive for COVID at that time but improved with minimal symptoms after a week or so. Had been feeling okay. Has some recent nasal congestion and itchy eyes c/w allergies and takes cetirizine daily. Has had feeling of dyspnea with light activity, and feeling of having "to work to breath". No cough nor fevers currently. No edema in legs.) Improved by: Rest Worsened by: Exertion Associated symptoms: Wheezing. No: Fever, Cough, Chest pain / discomfort, Palpitations, Bilateral edema Similar symptoms before: Has not had sx before Review of Systems Constitutional: denies: Fever, Chills, Myalgias Nose: reports: Rhinorrhea / runny nose, Congestion Throat: denies: Sore throat Cardiac: denies: Chest pain / pressure, Palpitations Respiratory: reports: Dyspnea. 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 HEENT: None Psych: None Musculoskeletal: None Derm: Other - Past Surgical History Past Surgical History: Yes - Present Medications Home Medications: Ambulatory Orders Medication Instructions Recorded Confirmed Benzonatate [Tessalon Perle] 100 mg PO TID PRN #25 capsule 05/06/19 dexAMETHasone [Decadron] 4 mg PO DAILY #5 tablet 05/06/19 Hydrocodone/Acetaminophen 1 - 2 each PO Q6H PRN #14 tablet 05/10/19 [Hydrocodon-Acetaminophen 5-325] Meloxicam [Mobic] 15 mg PO DAILY PRN #20 tablet 05/10/19 Albuterol Sulfate [Albuterol 2 puffs IH QID #1 hfa.aer.ad 10/06/19 Sulfate Hfa] Naproxen 375 mg PO BID #20 tablet 10/06/19 dexAMETHasone [Decadron] 4 mg PO DAILY #5 tablet 10/06/19 - Allergies Allergies/Adverse Reactions: Allergies Allergy/AdvReac Type Severity Reaction Status Date / Time No Known Drug Allergies Allergy Verified 10/06/19 10:22 - Social History Does the pt smoke?: Yes Smoking Status: Current every day smoker Does the pt drink ETOH?: No Does the pt have substance abuse?: Yes - Immunizations Immunizations are current?: No Immunizations: TDAP >10years/unknown - POLST Patient has POLST: No PD ED PE NORMAL - Vitals Vital signs reviewed: Yes - General General: Alert and oriented X 3, No acute distress, Well developed/nourished - HEENT HEENT: Moist mucous membranes, Pharynx benign - Neck Neck: Supple, no meningeal sign, No adenopathy - Cardiac Cardiac: RRR, No murmur - Respiratory Respiratory: Clear bilaterally - Abdomen Abdomen: Soft, Non tender - Extremities Extremities: Normal ROM s pain, No edema, No calf tenderness / cord - Neuro Neuro: Alert and oriented X 3, No motor deficit, Normal speech Results - Vitals Vitals: Vital Signs - 24 hr 10/06/19 10/06/19 10:23 12:17 Temperature 37 C Heart Rate 86 74 Respiratory 18 18 Rate Blood Pressure 118/72 117/68 O2 Saturation 98 98 Oxygen O2 Source Room air - Rads (name of study) chest xray Radiology: Prelim report reviewed (no acute process), See rad report PD MEDICAL DECISION MAKING - ED course Complexity details: reviewed results, considered differential (I think is more allergies with asthma exac and not infectious. She did not feel that it was infectious either, so deferred any viral testing. CXR evaluated for pneumonia, heart size, and effusions. These appeared normal. Low clinical suspicion for DVT. No signs of CHF (such as with cardiomyopathy, given recent COVID)), d/w patient Departure - Departure Disposition: 01 Home, Self Care Clinical Impression: Dyspnea Condition: Stable Record reviewed to determine appropriate education?: Yes Instructions: ED Reactive Airway Disease Prescriptions: Albuterol Sulfate [Albuterol Sulfate Hfa] 2 puffs IH QID #1 hfa.aer.ad dexAMETHasone [Decadron] 4 mg PO DAILY #5 tablet Naproxen 375 mg PO BID #20 tablet Comments: Regular hydration. Activity as tolerated. Use the albuterol inhaler 2 puffs to 3 puffs 4 times a day for the next week and then extra times as needed for shortness of breath. Then resume using it just as needed after that. Decadron steroid daily for 5 days for inflammation of the airways. Add naproxen anti-inflammatory twice daily for a week as well. Continue your fhiq-hoh-slpoihz allergy medicine. Recheck if not improved well over the next several days and resolved by several days to week. Discharge Date/Time: 10/06/19 12:17
[2019-10-06 12:18] VITALS: BP 117/68
== END 2019-10-06 12:17 | disposition home or self-care (01) ==
LOC: ED 10:08
DX: R06.00 Dyspnea, unspecified (principal); F17.200 Nicotine dependence, unspecified, uncomplicated
CPT/HCPCS: 71045; 99283; 99284

== ENCOUNTER 2019-11-20 07:29 | Emergency (ER) | payer MEDICAID ==
[2019-11-20] MEDS ORDERED: DEXAMETHASONE 10 MG/ML VIAL PO STA (08:37)
[2019-11-20] MEDS ORDERED: CHERRY SYRUP 10 ML UDC PO ONE (08:37)
--- NOTE | 2019-11-20 08:39 | ED Physician Documentation ---
PD HPI CHEST PAIN - Stated complaint Stated Complaint: RT Sided CP - Chief complaint Chief Complaint: General - History obtained from History obtained from: Patient - History of Present Illness Timing - onset: Today Timing - onset during: Light activity Timing - duration: Minutes Timing - details: Abrupt onset, Still present Pain level max: 8 Pain level now: 3 Quality: Sharp, Pain Location: Right chest Radiation: No: Jaw, Neck, Back, Abdominal, Left upper extremity, Right upper extremity Improved by: Rest Worsened by: Exertion, Inspiration, Movement, Palpation Associated symptoms: No: Shortness of air, Diaphoresis, Nausea, Vomiting, Feeling faint / dizzy, General Weakness, Palpitations, Cough Similar symptoms before: Has not had sx before Recently seen: Other - Additional information Additional information: 29-year-old female who works at [employer] and had coronavirus in July of this year has recovered from that she is been seen back in the emergency department had some bronchitis and was prescribed an inhaler and some steroid and improved from that. She has had 2- coronavirus test since her illness. She characterized her illness as whole-body pain for about 1 week and loss of smell. This morning she was at work walking to get coffee when she began to experience some pain in her right chest above her breast and over her back by her scapula and she states this is related to breathing. She denies any recent difficulty in breathing and denies any difficulty breathing now. She is not having wheezing and she is not having to use an inhaler. She does not otherwise feel ill Review of Systems Constitutional: denies: Fever, Myalgias Eyes: denies: Decreased vision Ears: denies: Ear pain Nose: denies: Rhinorrhea / runny nose, Congestion Throat: reports: Sore throat Cardiac: reports: Chest pain / pressure. 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 HEENT: None Psych: None Musculoskeletal: None Derm: Other - Past Surgical History Past Surgical History: Yes - Present Medications Home Medications: Ambulatory Orders Medication Instructions Recorded Confirmed Benzonatate [Tessalon Perle] 100 mg PO TID PRN #25 capsule 05/06/19 dexAMETHasone [Decadron] 4 mg PO DAILY #5 tablet 05/06/19 Hydrocodone/Acetaminophen 1 - 2 each PO Q6H PRN #14 tablet 05/10/19 [Hydrocodon-Acetaminophen 5-325] Meloxicam [Mobic] 15 mg PO DAILY PRN #20 tablet 05/10/19 Albuterol Sulfate [Albuterol 2 puffs IH QID #1 hfa.aer.ad 10/06/19 Sulfate Hfa] Naproxen 375 mg PO BID #20 tablet 10/06/19 dexAMETHasone [Decadron] 4 mg PO DAILY #5 tablet 10/06/19 - Allergies Allergies/Adverse Reactions: Allergies Allergy/AdvReac Type Severity Reaction Status Date / Time No Known Drug Allergies Allergy Verified 11/20/19 07:39 - Social History Does the pt smoke?: Yes Smoking Status: Current every day smoker Does the pt drink ETOH?: No Does the pt have substance abuse?: Yes - Immunizations Immunizations are current?: No Immunizations: TDAP >10years/unknown - POLST Patient has POLST: No PD ED PE NORMAL - Vitals Vital signs reviewed: Yes (Normal) - General General: Alert and oriented X 3, No acute distress, Well developed/nourished - HEENT HEENT: Atraumatic, PERRL, EOMI, Moist mucous membranes, Pharynx benign (Mild erythema to both TMs with retained landmarks), Other - Neck Neck: Supple, no meningeal sign, No bony TTP - Cardiac Cardiac: RRR, No murmur - Respiratory Respiratory: No respiratory distress, Clear bilaterally, Other (There is chest wall tenderness anteriorly above the right breast and over the rhomboid muscles on the right side.) - Abdomen Abdomen: Soft, Non tender - Back Back: No CVA TTP, No spinal TTP - Derm Derm: Normal color, Warm and dry, No rash - Extremities Extremities: No deformity, No edema - Neuro Neuro: Alert and oriented X 3, 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, No motor deficit, No sensory deficit, Normal speech Eye Opening: Spontaneous Motor: Obeys Commands Verbal: Oriented GCS Score: 15 - Psych Psych: Normal mood, Normal affect Results - Vitals Vitals: Vital Signs - 24 hr 11/20/19 07:30 Temperature 36.4 C L Heart Rate 77 Respiratory 16 Rate Blood Pressure 125/72 Oxygen O2 Source Room air - Rads (name of study) chest Radiology: Prelim report reviewed (Impression: No acute cardiopulmonary disease process.), EMP read indepedently, See rad report PD MEDICAL DECISION MAKING - ED course Complexity details: reviewed results, re-evaluated patient, considered differential, d/w patient ED course: 29-year-old female with a prior coronavirus infection has now developed chest wall pain. She has tenderness to the chest wall and she has pain with deep breathing. She is administered dexamethasone 10 mg orally I do not see any evidence of an acute infection. Patient does not appear to have wheezing. I discussed with the patient chest wall fatigue and chest wall pain and the expectation is she will recover completely.Today we did re-swab her for lemuel navirus.I do not see any evidence of current infection. Departure - Departure Disposition: 01 Home, Self Care Clinical Impression: Chest wall pain Condition: Stable Instructions: ED Chest Pain Costochondritis, ED Strain Chest Wall Follow-Up: [facility] [Provider Group] Forms: Activity restrictions
--- NOTE | 2019-11-20 09:04 | XRAY Report ---
PROCEDURE: Chest 1 View X-Ray INDICATIONS: chest pain TECHNIQUE: One view of the chest was acquired. COMPARISON: 10/06/2019 FINDINGS: Surgical changes and devices: None. Lungs and pleura: No pleural effusions or pneumothorax. Lungs are clear. Mediastinum: Mediastinal contours appear normal. Heart size is normal. Bones and chest wall: No suspicious bony lesions. Overlying soft tissues appear unremarkable. IMPRESSION: No acute cardiopulmonary disease process. Reviewed by: Laura Bartholomew MD, PhD on 11/20/2019 9:02 AM PDT Approved by: Laura Bartholomew MD, PhD on 11/20/2019 9:02 AM PDT Station ID: [id number]
[2019-11-20 09:43] VITALS: BP 114/72
== END 2019-11-20 09:43 | disposition home or self-care (01) ==
LOC: ED 07:29
DX: R07.89 Other chest pain (principal); Z86.19 Personal history of other infectious and parasitic diseases; Z11.59 Encounter for screening for other viral diseases; F17.200 Nicotine dependence, unspecified, uncomplicated
CPT/HCPCS: 71045; 81599; 99284; A9270

== ENCOUNTER 2021-03-19 19:58 | Emergency (ER) | payer MEDICAID ==
[2021-03-19 20:08] VITALS: BP 125/65
--- NOTE | 2021-03-19 20:15 | ED Physician Documentation ---
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 HEENT: None Psych: None Musculoskeletal: None Derm: Other - Past Surgical History Past Surgical History: Yes - Present Medications Home Medications: Ambulatory Orders Medication Instructions Recorded Confirmed No Known Home Medications 03/19/21 03/19/21 - Allergies Allergies/Adverse Reactions: Allergies Allergy/AdvReac Type Severity Reaction Status Date / Time No Known Drug Allergies Allergy Verified 03/19/21 20:08 - Social History Does the pt smoke?: Yes Smoking Status: Current every day smoker Does the pt drink ETOH?: No Does the pt have substance abuse?: Yes - Immunizations Immunizations are current?: No Immunizations: TDAP >10years/unknown - POLST Patient has POLST: No Results - Vitals Vitals: Vital Signs - 24 hr 03/19/21 20:02 Temperature 36.3 C L Heart Rate 74 Respiratory 16 Rate Blood Pressure 125/65 O2 Saturation 98 Oxygen O2 Source Room air
--- NOTE | 2021-03-19 20:17 | ED Physician Documentation ---
PD HPI HEENT - Stated complaint Stated Complaint: RIGHT SIDE FACIAL PX - Chief complaint Chief Complaint: Heent - History obtained from History obtained from: Patient - History of Present Illness Timing - onset: How many days ago (2-3 days) Timing - details: Gradual onset, Waxing and waning Pain level now: 3 Location: Tooth Improves: Nothing Worsens: Other (no exacerbating factors) Associated symptoms: No: Fever Recently seen: Not recently seen - Additional information Additional information: c/o "a lot of tooth pain for about a month", "on and off" (per patient). She says the pain is distinctly worse over past 2-3 days and steadily worsening. She says she is seen by [facility] dentistry but does not have any scheduled appointments, plans to go there Sunday to arrange for next available appointment (or see if they will evaluate her as walk-in). 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 HEENT: None Psych: None Musculoskeletal: None Derm: Other - Past Surgical History Past Surgical History: Yes - Present Medications Home Medications: Ambulatory Orders Medication Instructions Recorded Confirmed HYDROcod/ACETAM 5/325 [Applegate 5/325] 1 - 2 tablet PO Q6H PRN #12 tablet 03/19/21 clindamycin HCL [Clindamycin HCl] 300 mg PO QID #19 cap 03/19/21 - Allergies Allergies/Adverse Reactions: Allergies Allergy/AdvReac Type Severity Reaction Status Date / Time No Known Drug Allergies Allergy Verified 03/19/21 20:08 - Social History Does the pt smoke?: Yes Smoking Status: Current every day smoker Does the pt drink ETOH?: No Does the pt have substance abuse?: Yes - Immunizations Immunizations are current?: No Immunizations: TDAP >10years/unknown - POLST Patient has POLST: No PD ED PE NORMAL - Vitals Vital signs reviewed: Yes - General General: Alert and oriented X 3, No acute distress, Well developed/nourished - HEENT HEENT: Ears normal, Moist mucous membranes - Neck Neck: Supple, no meningeal sign PD ED PE EXPANDED - HEENT HEENT Visual: 1 - tenderness (noticeable decay of #30 with what appears to be a temporary filling. there is mild TTP but no overt swelling of surround soft tissue, no erythema, no discharge) Results - Vitals Vitals: Vital Signs - 24 hr 03/19/21 20:02 Temperature 36.3 C L Heart Rate 74 Respiratory 16 Rate Blood Pressure 125/65 O2 Saturation 98 Oxygen O2 Source Room air PD MEDICAL DECISION MAKING - ED course Complexity details: reviewed old records, considered differential, d/w patient ED course: c/o pain tooth #30 which she says has only been this severe when she has been told it was infected. I do not see any overt evidence of infection but reasonable to cover with 5 day course of antibiotic and short course of pain medication until she can hopefully be reevaluated by her dental group. She says she plans to go to the [facility] office on Sunday to inquire regarding appointment availability as well as see if walk-ins are available. Departure - Departure Disposition: Home, Self Care Clinical Impression: Tooth ache Condition: Good Instructions: ED Tooth Pain Follow-Up: TRICIA RICARDO NP [Primary Care Provider] - Prescriptions: clindamycin HCL [Clindamycin HCl] 300 mg PO QID #19 cap HYDROcod/ACETAM 5/325 [[place] 5/325] 1 - 2 tablet PO Q6H PRN #12 tablet PRN Reason: Pain Comments: Follow up with a dentist, call Sunday to arrange for next available appointment. Prescriptions for the antibiotic (clindamycin) and opiate pain medication (hydrocodone with acetaminophen) have been electronically submitted to [facility] pharmacy in [place]. I am prescribing a short course of narcotic pain medication for you. These are potentially dangerous and addictive medications that should be used carefully. These medications may constipate you. Take an ymwn-fji-ssglren stool softener (docusate) twice daily with plenty of water while taking these medications. If you go 24 hours without a bowel movement, take kcdo-lyw-hoawesz miralax, per package instructions. Do not drink or drive while taking these medications. If you received narcotic or sedating medications while in the emergency department, do not drive for 24 hours. Store this medication in a safe, secure place and out of reach of children. It is a violation of federal law to give or sell this medication to another person or to use in a manner other than prescribed. The ED will not refill narcotic prescriptions, including prescriptions lost or stolen. To dispose of unwanted medications: 1. [facility] at [address] in [place] has a medication drop box. They accept prescription medications (in pill form) Sunday through Sunday 9:00 a.m. to 5:00 p.m. 2. The [facility] accepts prescription medications (in pill form only) for disposal year round. Call for more information. 3. Contact the [facility] for the next [facility] sponsored prescription drug collection event. , [phone], or [phone]; Discharge Date/Time: 03/19/21 20:48
[2021-03-19] MEDS: HYDROcod/ACET 5/325 Prepack 4 PO STA (20:41)
[2021-03-19] MEDS: CLINDAMYCIN 150 MG CAPSULE PO STA (20:41)
== END 2021-03-19 20:48 | disposition home or self-care (01) ==
LOC: ED 19:58
DX: K08.89 Other specified disorders of teeth and supporting structures (principal); F17.200 Nicotine dependence, unspecified, uncomplicated
CPT/HCPCS: 99282; 99283; A9270

== ENCOUNTER 2021-11-26 20:15 | Emergency (ER) | payer MEDICAID ==
[2021-11-26 20:32] VITALS: BP 110/54
[2021-11-26] MEDS ORDERED: AMOX/CLAV 875 MG/125 MG TABLET PO STA (21:54)
[2021-11-26] MEDS ORDERED: IBUPROFEN 600 MG TABLET PO STA (21:55)
--- NOTE | 2021-11-26 21:57 | ED Physician Documentation ---
PD HPI HEENT - Stated complaint Stated Complaint: FEMALE /MOUTH - Chief complaint Chief Complaint: Heent - History obtained from History obtained from: Patient - Additional information Additional information: Patient is a 31-year-old female with right lower molar dental pain that has been ongoing for a few weeks but worse over the last 2 days. She has intermittently had issues with this tooth in the past as a cap that was placed when she was a child has come off but she has been too afraid to go to the dentist to have it taken care of. She does smoke. She has not tried anything for her pain. The pain is sharp and aching. It is worse with eating and talking. She denies any trouble swallowing Or breathing. Reports her voice is normal. 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 HEENT: None Psych: None Musculoskeletal: None Derm: Other - Past Surgical History Past Surgical History: Yes - Present Medications Home Medications: Ambulatory Orders Medication Instructions Recorded Confirmed Amox/Clav 875/125 [Augmentin] 1 each PO Q12H #14 tablet 11/26/21 - Allergies Allergies/Adverse Reactions: Allergies Allergy/AdvReac Type Severity Reaction Status Date / Time No Known Drug Allergies Allergy Verified 11/26/21 20:32 - Social History Does the pt smoke?: Yes Smoking Status: Current every day smoker Does the pt drink ETOH?: No Does the pt have substance abuse?: Yes - Immunizations Immunizations are current?: No Immunizations: TDAP >10years/unknown - POLST Patient has POLST: No PD ED PE NORMAL - General General: Alert and oriented X 3, No acute distress, Well developed/nourished - HEENT HEENT: Atraumatic, Moist mucous membranes, Other (Dental decay, No oral abscess or swelling,Normal voice, no trismus) - Neck Neck: Supple, no meningeal sign - Respiratory Respiratory: No respiratory distress - Derm Derm: Warm and dry - Neuro Neuro: Normal speech PD ED PE EXPANDED - HEENT HEENT Visual: 1 - tenderness (Cracked tooth, dental decay, no visual abscess or exposed nerve) Results - Vitals Vitals: Vital Signs - 24 hr 11/26/21 11/26/21 20:27 22:23 Temperature 36.6 C Heart Rate 71 74 Respiratory 16 16 Rate Blood Pressure 110/54 L O2 Saturation 100 98 Oxygen O2 Source Room air PD MEDICAL DECISION MAKING - ED course ED course: Patient with right lower molar dental pain and decay. No signs of deep space infection, airway compromise. She is well-appearing with normal speech. Concern for infection setting in. Patient started on antibiotic and aware of need for follow-up with dentist. No signs of abscess or cellulitis. Departure - Departure Disposition: 01 Home, Self Care Clinical Impression: Dental infection Condition: Stable Instructions: ED Tooth Pain Prescriptions: Amox/Clav 875/125 [Augmentin] 1 each PO Q12H #14 tablet Comments: You were evaluated for pain to a right lower molar. He does appear to have an infection at this time. We will start you on Augmentin. I have sent the prescription to [facility] in [place]. You also need to follow-up with a dentist. Please make this a priority on Sunday to call around to dental clinics for urgent care. If you have any worsening symptoms please consider return to the emergency department. It is very important that you follow-up with a dentist. When it comes to dental problems like yours, the emergency department can only offer a short-term solution to your long-term problem. A couple of low cost options for dental care include: [facility] in [place], calls [phone] for an appointment Or [facility] in [place], call [phone] for an appointment. Discharge Date/Time: 11/26/21 22:00
[2021-11-27] MEDS ORDERED: LORazepam 2 MG/ML VIAL ONE (00:46)
== END 2021-11-26 22:00 | disposition home or self-care (01) ==
LOC: ED 20:15
DX: K02.9 Dental caries, unspecified (principal); K04.7 Periapical abscess without sinus; F17.200 Nicotine dependence, unspecified, uncomplicated
CPT/HCPCS: 99282; A9270

== ENCOUNTER 2022-05-08 08:00 | Outpatient (CLI) | payer MEDICAID ==
[2022-05-08 17:44] LABS: BASOPHILS % (AUTO) 0.5 %; EOSINOPHILS % (AUTO) 0.2 %; HCT - HEMATOCRIT 41.8 % (37.0-47.0); HGB - HEMOGLOBIN 13.7 g/dL (12.0-16.0); LYMPHOCYTES # (AUTO) 1.1 10^3/uL (1.5-3.5); LYMPHOCYTES % (AUTO) 17.1 %; MEAN CORPUSCULAR HEMOGLOBIN 30.5 pg (27.0-31.0); MEAN CORPUSCULAR HGB CONC 32.8 g/dL (32.0-36.0); MEAN CORPUSCULAR VOLUME 93.1 fL (81.0-99.0); MEAN PLATELET VOLUME 10.1 fL (7.9-10.8); MONOCYTES # (AUTO) 0.5 10^3/uL (0.0-1.0); MONOCYTES % (AUTO) 7.8 %; NEUTROPHILS # (AUTO) 4.7 10^3/uL (1.5-6.6); NEUTROPHILS % (AUTO) 74.2 %; PLT - PLATELET COUNT 312 10^3/uL (130-450); RED BLOOD COUNT 4.49 10^6/uL (4.20-5.40); RED CELL DISTRIBUTION WIDTH 12.9 % (12.0-15.0); WHITE BLOOD COUNT 6.3 x10^3/uL (4.8-10.8)
[2022-05-08 18:16] LABS: ALBUMIN 4.1 g/dL (3.2-5.5); ALBUMIN/GLOBULIN RATIO 1.5 (1.0-2.2); ALKALINE PHOSPHATASE 45 IU/L (42-121); ALT ALANINE AMINOTRANSFERASE 13 IU/L (10-60); AST ASPARTATE AMINOTRANSFERASE 18 IU/L (10-42); BILIRUBIN,TOTAL 0.8 mg/dL (0.2-1.0); BUN - BLOOD UREA NITROGEN 14 mg/dL (6-20); CALCIUM 8.9 mg/dL (8.5-10.3); CARBON DIOXIDE - CO2 26 mmol/L (21-32); CHLORIDE 100 mmol/L (101-111); CREATININE 0.7 mg/dL (0.4-1.0); GFR - MDRD 96 (>89); GLUCOSE 87 mg/dL (70-100); LIPASE 23 U/L (22-51); POTASSIUM 3.9 mmol/L (3.5-5.0); SODIUM 135 mmol/L (135-145); TOTAL PROTEIN 6.8 g/dL (6.7-8.2)
[2022-05-08 18:17] LABS: CRP - C-REACTIVE PROTEIN < 1.0 mg/dL (0-1.0)
== END 2022-05-08 23:59 | disposition home or self-care (01) ==
LOC: LAB.N 08:00
PROVIDERS: ATTEND Registered Nurse
DX: R10.9 Unspecified abdominal pain (principal)
CPT/HCPCS: 36415; 80053; 83690; 85025; 86140

== ENCOUNTER 2022-12-17 12:29 | Emergency (ER) | payer MEDICAID ==
[2022-12-17 12:35] VITALS: BP 116/60
--- NOTE | 2022-12-17 12:49 | ED Physician Documentation ---
History of Present Illness - Stated complaint Stated Complaint: BUMP IN MOUTH/PX - Chief complaint Chief Complaint: Heent - Additonal information Additional information: 32-year-old female presents emergency department for evaluation of gum swelling right lower mouth has been intermittently present for about 2 weeks. She has an associated molar that is very decayed. Trying to see a dentist referral is pending. States that they will often open and drain while eating. No fevers. No trismus. No dysphonia. 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 : None HEENT: None Psych: None Musculoskeletal: None Derm: Other - Past Surgical History Past Surgical History: Yes - Present Medications Home Medications: Ambulatory Orders Medication Instructions Recorded Confirmed Amox/Clav 875/125 [Augmentin] 1 each PO Q12H #14 tablet 11/26/21 Amox/Clav 875/125 [Augmentin] 1 each PO Q12H #20 tablet 12/17/22 Chlorhexidine Gluconate [Peridex] 10 ml MM BID #118 ml 12/17/22 - Allergies Allergies/Adverse Reactions: Allergies Allergy/AdvReac Type Severity Reaction Status Date / Time No Known Drug Allergies Allergy Verified 12/17/22 12:31 - Social History Does the pt smoke?: Yes Smoking Status: Current every day smoker Does the pt drink ETOH?: No Does the pt have substance abuse?: Yes - Immunizations Immunizations are current?: No Immunizations: TDAP >10years/unknown - POLST Patient has POLST: No PD ED PE EXPANDED - General General: Alert, No acute distress - HEENT HEENT: Other (Right lower posterior second molar significantly decayed and carious. Associated gumline swelling and fluctuance though no drainage was seen. No trismus. Uvula is midline. No soft palate asymmetry or swelling. No rmal phonation normal swallow.) Results - Vitals Vitals: Vital Signs - 24 hr 12/17/22 12:32 Temperature 36.5 C Heart Rate 80 Respiratory 16 Rate Blood Pressure 116/60 O2 Saturation 98 Oxygen O2 Source Room air PD Medical Decision Making - ED course Complexity details: d/w patient ED course: 32-year-old female presents emergency department for evaluation of gumline swelling which is consistent with a dental abscess. No trismus dysphonia or difficulty swallowing. This abscess is associated with a very diseased tooth and right posterior molar. She does have a dental referral pending. Patient will be started on Augmentin and Peridex mouth rinse. Recommend Tylenol Motrin [id number] for analgesia. The usual appropriate emergent return precautions for worsening symptoms was discussed Departure - Departure Disposition: 01 Home, Self Care Clinical Impression: Dental abscess Condition: Stable Record reviewed to determine appropriate education?: Yes Instructions: ED Abscess Dental Prescriptions: Amox/Clav 875/125 [Augmentin] 1 each PO Q12H #20 tablet Chlorhexidine Gluconate [Peridex] 10 ml MM BID #118 ml Comments: Nancy you do have some gumline swelling and drainage which is consistent with a dental abscess. I believe it is related to the diseased molar next to it. It is critical that you follow-up with a dentist in order to have this tooth removed. In the short-term we are starting you on Augmentin which she will take twice daily for the next 10 days. Please make sure that you eat yogurt with live cultures to help prevent diarrhea. You can take 500 mg of Tylenol 2-3 times a day or alternate with 600 mg of Motrin taken with food 2-3 times a day for discomfort. I have prescribed Peridex a mouth rinse that can be helpful with dental infections. If you find it cost prohibitive please rinse your mouth 2-3 times a day with Listerine or alternatively gargle with warm salt water 2-3 times a day. This will help dry out infection. Return to the ER if you are having worsening symptoms, develop any fevers, cannot tolerate or swallow your oral secretions or have any other worrisome concerns
== END 2022-12-17 12:56 | disposition home or self-care (01) ==
LOC: ED 12:29
DX: K04.7 Periapical abscess without sinus (principal); F17.200 Nicotine dependence, unspecified, uncomplicated
CPT/HCPCS: 99282; 99283